=== PATIENT | male | born 1970 | race American Indian/Alaskan Native ===

== ENCOUNTER 2017-05-19 08:31 | Emergency (ER) | payer SELFPAY ==
[2017-05-19 08:52] VITALS: BP 123/82
[2017-05-19] MEDS ORDERED: DELTASONE PO NR ×2 (10:30→11:00)
[2017-05-19] MEDS ORDERED: NORCO 5/325 PO ONE (10:30)
[2017-05-19] MEDS ORDERED: TRIMOX PO ONE (10:30)
--- NOTE | 2017-05-19 10:58 | Emergency Department Report ---
ED ENT HPI - General Chief complaint: Dental/Oral Stated complaint: TOOTH PAIN /BODY ACHES Time Seen by Provider: 05/19/17 10:22 Source: patient Mode of arrival: Ambulatory Limitations: No Limitations - History of Present Illness Initial comments: PT states he has a hx of sacroidosis and is supposed to be on 20 mg Prednisone a day. PT states he is out of his medication. PT states he has been out of Prednisone for 3 days and today he is having body aches. PT states he is visiting from out of town ([place]) and he tried to have his pcp call in his rx but he has not been successful. PT states 4-5 days ago, he was eating and he chipped his tooth. PT states he has had gradual onset tooth ache and sensitivity to cold. PT states he last dental appointment was 1 year ago and he received a partial. MD complaint: tooth pain Onset/Timin -: Gradual, days(s) 1 - chipped Severity scale (0 -10): 9 Quality: aching, sharp (with cold air) Consistency: constant Improves with: other medication (prednisone helps the body ache ) Worsens with: other (cold air) Context- Dental: trauma Associated Symptoms: gum swelling, toothache. denies: fever, discharge from ear - Related Data Previous Rx's Medication Instructions Recorded Last Taken Type Docusate Sodium [Colace] 100 mg PO BID PRN #60 capsule 01/18/16 Unknown Rx Magnesium Hydroxide [Milk of 30 ml PO QPM #1 bottle 01/18/16 Unknown Rx Magnesia] Acetaminophen/Codeine [Tylenol #3] 1 tab PO Q6H PRN #12 tab 05/19/17 Unknown Rx Amoxicillin 500 mg PO BID #20 capsule 05/19/17 Unknown Rx predniSONE [Deltasone] 20 mg PO QDAY #10 tab 05/19/17 Unknown Rx Allergies Allergy/AdvReac Type Severity Reaction Status Date / Time No Known Allergies Allergy Verified 01/18/16 11:14 ED Dental HPI - General Chief complaint: Dental/Oral Stated complaint: TOOTH PAIN /BODY ACHES Time Seen by Provider: 07/03/17 10:22 Source: patient Mode of arrival: Ambulatory Limitations: No Limitations - Related Data Previous Rx's Medication Instructions Recorded Last Taken Type Docusate Sodium [Colace] 100 mg PO BID PRN #60 capsule 01/18/16 Unknown Rx Magnesium Hydroxide [Milk of 30 ml PO QPM #1 bottle 01/18/16 Unknown Rx Magnesia] Acetaminophen/Codeine [Tylenol #3] 1 tab PO Q6H PRN #12 tab 05/19/17 Unknown Rx Amoxicillin 500 mg PO BID #20 capsule 05/19/17 Unknown Rx predniSONE [Deltasone] 20 mg PO QDAY #10 tab 05/19/17 Unknown Rx Allergies Allergy/AdvReac Type Severity Reaction Status Date / Time No Known Allergies Allergy Verified 01/18/16 11:14 ED Review of Systems ROS: Stated complaint: TOOTH PAIN /BODY ACHES Other details as noted in HPI Comment: All other systems reviewed and negative Constitutional: malaise. denies: chills, fever ENT: as per HPI Respiratory: denies: shortness of breath Gastrointestinal: denies: nausea, vomiting Musculoskeletal: myalgia ED Past Medical Hx - Past Medical History Previous Medical History?: Yes Hx Liver Disease: Yes (HEPATITIS C) Additional medical history: sarcoidosis. SCIATICA - Surgical History Past Surgical History?: No - Social History Smoking Status: Former Smoker Substance Use Type: Non Opiate Pain, Prescribed - Medications Home Medications: Home Medications Medication Instructions Recorded Confirmed Last Taken Type Docusate Sodium [Colace] 100 mg PO BID PRN #60 capsule 01/18/16 Unknown Rx Magnesium Hydroxide [Milk of 30 ml PO QPM #1 bottle 01/18/16 Unknown Rx Magnesia] Acetaminophen/Codeine [Tylenol #3] 1 tab PO Q6H PRN #12 tab 05/19/17 Unknown Rx Amoxicillin 500 mg PO BID #20 capsule 05/19/17 Unknown Rx predniSONE [Deltasone] 20 mg PO QDAY #10 tab 05/19/17 Unknown Rx ED Physical Exam - General Limitations: No Limitations General appearance: alert, in no apparent distress - Head Head exam: Present: atraumatic, normocephalic, normal inspection - Eye Eye exam: Present: normal appearance, PERRL, EOMI. Absent: conjunctival injection - ENT ENT exam: Present: mucous membranes moist, TM's normal bilaterally, normal external ear exam, other (left upper partial noted) - Expanded ENT Exam Expanded Mouth exam: Absent: drooling, trismus Teeth exam: Present: fractured tooth # (11), dental tenderness # (11), other ( no dental abscess seen ). Absent: gingival enlargement Throat exam: Positive: normal inspection - Neck Neck exam: Present: normal inspection, full ROM - Respiratory Respiratory exam: Present: normal lung sounds bilaterally. Absent: respiratory distress, wheezes, rhonchi, chest wall tenderness - Cardiovascular Cardiovascular Exam: Present: regular rate, normal rhythm - Extremities Exam Extremities exam: Present: normal inspection, full ROM - Back Exam Back exam: Present: normal inspection, full ROM. Absent: tenderness - Neurological Exam Neurological exam: Present: alert, oriented X3 - Psychiatric Psychiatric exam: Present: normal affect, normal mood - Skin Skin exam: Present: warm, dry, intact, normal color ED Course Vital Signs 05/19/17 08:48 Temperature 98.7 F Pulse Rate 68 Respiratory 16 Rate Blood Pressure 123/82 O2 Sat by Pulse 100 Oximetry - Reevaluation(s) Reevaluation #1: 05/19/17 11:00 PT aware of dx and need for follow up with PCP and dentist. PT has no questions at this time. - Pulse Oximetry Interpretation Digit-Finger Initial Pulse Oximetry Readin Actions Taken: none ED Medical Decision Making - Differential Diagnosis dental abscess, toothache, myalgia Critical Care Time: No Critical care attestation.: If time is entered above; I have spent that time in minutes in the direct care of this critically ill patient, excluding procedure time. ED Disposition Clinical Impression: Toothache, Myalgia Disposition: TO HOME OR SELFCARE Is pt being admited?: No Does the pt Need Aspirin: No Condition: Stable Instructions: Dental Caries (ED), Sarcoidosis (ED), Musculoskeletal Pain (ED), Toothache (ED) Additional Instructions: No driving or alcohol after taking Tylenol #3 Follow up with PCP when you return home Follow up with Dentist when you return home Return to the ed if worsening or concerns Prescriptions: Acetaminophen/Codeine [Tylenol #3] 1 tab PO Q6H PRN #12 tab PRN Reason: Pain , Severe (7-10) Amoxicillin 500 mg PO BID #20 capsule predniSONE [Deltasone] 20 mg PO QDAY #10 tab Referrals: PRIMARY CARE, [Primary Care Provider] - 3-5 Days JULIO CESAR WILSON MD [Staff Physician] - 3-5 Days [facility] [Outside] - 3-5 Days Time of Disposition: 11:04
[2017-05-19] MEDS ORDERED: DELTASONE PO ONE (11:21)
== END 2017-05-19 11:31 | disposition home or self-care (01) ==
LOC: ED 08:31
DX: K08.89 Other specified disorders of teeth and supporting structures (principal); Z87.891 Personal history of nicotine dependence
CPT/HCPCS: 99282; J7512